=== PATIENT | male | born 1995 | race Caucasian/White ===

== ENCOUNTER 2025-06-11 23:55 | Emergency (ER) | payer OTHER ==
[~2025-06-11] VITALS: Ht 175.3 cm; Wt 104.5 kg
[2025-06-12] MEDS: SODIUM CHLORIDE 0.9% 1,000 ML IV ONE (01:00)
[2025-06-12 01:03] LABS: PLATELET COUNT (AUTO) 258 K/uL (150-450); RED BLOOD CELL COUNT(AUTO) 5.19 MIL/uL (4.50-5.90); RED CELL DISTRIBUTION WIDTH 13.1 % (11.5-14.5); WHITE BLOOD COUNT (AUTO) 8.7 K/uL (4.5-11.0)
[2025-06-12 01:10] LABS: CALCIUM, TOTAL 9.2 mg/dL (8.8-10.5); CREATININE 0.79 mg/dL (0.60-1.30); GLOMERULAR FILTR. RATE CALC > 60 mL/min (>60); GLUCOSE,RANDOM 114 mg/dL (70-110); SODIUM SERUM 140 mmol/L (136-145); UREA NITROGEN, BLOOD 17 mg/dL (7-18)
[2025-06-12 01:18] LABS: ALCOHOL, BLOOD (SERUM) 13 mg/dL (0-10); CREATINE KINASE, TOTAL ONLY 272 U/L (39-308)
[2025-06-12 01:20] LABS: TROPONIN I-HIGH SENSITIVITY 7 ng/L (<76)
[2025-06-12] MEDS: PERTUSS(ACELL),DIPH,TET/PF 0.5 ML SYRINGE [ADULT] IM. ONE (03:03)
[2025-06-12] MEDS: BACITRACIN 28 GM OINTMENT TP ONE (03:03)
[2025-06-12 03:12] VITALS: BP 119/71; PULSE 81; RESP 20; TEMP 97.3; O2SAT 99
== END 2025-06-12 03:31 | disposition home or self-care (01) ==
LOC: EMS 23:55
DX: S00.83XA Contusion of other part of head, initial encounter (principal); R55 Syncope and collapse; M54.2 Cervicalgia; F17.210 Nicotine dependence, cigarettes, uncomplicated; F14.90 Cocaine use, unspecified, uncomplicated; F15.90 Other stimulant use, unspecified, uncomplicated; Y93.89 Activity, other specified; X58.XXXA Exposure to other specified factors, initial encounter; Y92.89 Other specified places as the place of occurrence of the external cause; Y99.8 Other external cause status
CPT/HCPCS: 99285; 80048; 82550; 83880; 84484; 85025; 36415; 70450; 71045; 70486; 72125; 93005; G0480